=== PATIENT | female | born 1970 | race Caucasian/White ===

== ENCOUNTER 2022-07-13 07:09 | Emergency (ER) | payer OTHER, SELFPAY ==
[2022-07-13] VITALS (25 sets, daily range): BP systolic 129–152; BP diastolic 88–110; PULSE 104; RESP 12; TEMP 37.1; O2SAT 95–98
[2022-07-13 07:29] LABS: Glucose Point of Care 475 mg/dl (65-105)
--- NOTE | 2022-07-13 07:38 | ED.GENADULT ---
HPI - General Adult General Chief complaint: Recheck/Abnormal Lab/Rx Stated complaint: BS High x 2-3 days Time Seen by Provider: 07/13/22 07:12 History of Present Illness HPI narrative: 52-year-old female with history of type 2 diabetes for which she is noncompliant for presents to the emergency department complaining of hyperglycemia and diaphoresis. Patient states that last night her blood sugar was running over 500. Patient states she was at work this morning and had some diaphoresis and did not feel well and states that her blood sugar was 450. Patient had been prescribed metformin a few years ago but states that it upset her stomach so she stopped taking it. Patient states over the past 2 years she checks her blood sugars intermittently but does not take any medications for it. She states her blood sugar has always been over 300. Patient does describe symptoms of diabetic neuropathy. Patient describes intermittent chest pain but denies any chest pain today or this morning Related Data Allergies Allergy/AdvReac Type Severity Reaction Status Date / Time No Known Allergies Allergy Unknown Verified 07/13/22 09:55 Review of Systems Review of Systems: CONSTITUTIONAL: Generalized weakness diaphoresis EYES: Denies visual changes, redness, or discharge. ENT: Denies rhinorrhea, congestion, sore throat, or otalgia. CARDIOVASCULAR: Denies chest pain, palpitations, or edema. RESPIRATORY: Denies cough or dyspnea. GASTROINTESTINAL: Denies abdominal pain, nausea, vomiting, or diarrhea. GENITOURINARY: Denies dysuria or hematuria. SKIN: Denies rash or itching. MUSCULOSKELETAL: Denies back pain, joint pain, or myalgia. NEUROLOGIC: Denies headache, numbness, or weakness. [facility] Family History Family History (Updated 06/03/16 @ 23:19 by DOCTOR UNKNOWN) Mother Family history of chronic obstructive pulmonary disease Father Family history of diabetes mellitus in first degree relative Family history of heart disease in male family member before age 55 Grandparent Family history of lung cancer Social History Social History Smoking status: Never smoker Alcohol intake: current Exam Narrative: APPEARANCE: Well appearing, no pain, no distress, well-nourished. HEAD: normocephalic, atraumatic. EYES: PERRLA/EOMI, conjunctivae clear. NOSE: Normal no drainage NECK: Supple. No adenopathy, no masses. RESPIRATORY: Airway patent, respirations nonlabored. Clear to auscultation bilaterally, no rales, rhonchi, wheezing. CARDIOVASCULAR: Regular rate and rhythm without murmurs rubs or gallops. ABDOMINAL: Soft, nontender, nondistended, normal bowel sounds MUSCULOSKELETAL: Moves all extremities. Strength/ROM intact, No edema, No calf tenderness. NEURO: Alert. Cranial nerves II through XII intact. Grossly intact SKIN: Warm, dry. Normal Color Course Course Emergency Course: Case was discussed with the nurse practitioner for Dr. Montoya. Patient does feel improved with treatment. Patient was updated [facility] and the importance of having close follow-up with Dr. Montoya's office was stressed. Vital Signs Vital signs: Vital Signs Temperature 98.8 F 07/13/22 07:19 Pulse Rate 104 H 07/13/22 07:19 Respiratory Rate 12 07/13/22 07:19 Blood Pressure 152/103 H 07/13/22 07:19 Pulse Oximetry 97 07/13/22 07:19 Temperature 98.8 F 07/13/22 07:19 Pulse Rate 104 H 07/13/22 07:19 Respiratory Rate 12 07/13/22 07:19 Blood Pressure 130/88 07/13/22 11:31 Pulse Oximetry 97 07/13/22 11:31 Medical Decision Making Vital Signs Vital Signs: Vital Signs Temperature 98.8 F 07/13/22 07:19 Pulse Rate 104 H 07/13/22 07:19 Respiratory Rate 12 07/13/22 07:19 Blood Pressure 152/103 H 07/13/22 07:19 Pulse Oximetry 97 07/13/22 07:19 Temperature 98.8 F 07/13/22 07:19 Pulse Rate 104 H 07/13/22 07:19 Respiratory Rate 12 07/13/22 07:19 Blood Pressure
[2022-07-13 07:54] LABS: Appearance Urine Clear (Clear); Bilirubin Urine Negative (Negative); Blood Urine 1+ (Negative); Color Urine Yellow (Yellow); Glucose Urine UA 3+ mg/dL (Negative); Ketones Urine 2+ mg/dL (Negative); Leukocyte Esterase Ur Negative LEU/UL (Negative); Nitrate Urine Negative (Negative); Protein Urine 2+ mg/dL (Negative); Urobilinogen Urine 0.2 mg/dL (<2.0); pH Urine 5.5 (5.0-9.0)
[2022-07-13 07:58] LABS: Basophils Percent Auto 0.4 % (0.2-1.2); Eosinophils Absolute Auto 0.2 K/mm3 (0-0.3); Eosinophils Percent Auto 1.8 % (0-4.4); Hematocrit 45.2 % (37.0-47.0); Hemoglobin 15.7 g/dL (12.0-15.0); Immature Granulocyte Absolute 0.05 K/mm3 (0.00-0.031); Immature Granulocyte Percent A 0.5 % (0-0.5); Lymphocytes Absolute Auto 1.39 K/mm3 (0.9-3.2); Lymphocytes Percent Auto 12.7 % (18.3-44.2); Mean Corpuscular HGB Conc 34.7 g/dl (32-36); Mean Corpuscular Hemoglobin 30.4 pg (26-34); Mean Corpuscular Volume 87.4 fl (80-100); Mean Platelet Volume 11.7 fl (7.4-10.4); Monocytes Absolute Auto 0.7 K/mm3 (0.1-0.6); Monocytes Percent Auto 6.8 % (2.6-8.5); Neutrophils Absolute Auto 8.5 K/mm3 (1.3-6.7); Neutrophils Percent Auto 77.8 % (45.5-73.1); Platelet Count Result 243 k/mm3 (150-375); Red Blood Count 5.17 M/mm3 (4.2-5.4); Red Cell Distribution Width 12.9 % (11.5-14.5)
[2022-07-13 08:04] LABS: Lactic Acid Reflex 1.1 mmol/L (0.7-2.0)
[2022-07-13 08:06] LABS: Alanine Aminotransferase 35 U/L (6-35); Albumin Level 4.3 g/dL (3.5-5.1); Alkaline Phosphatase 239 U/L (38-126); Anion Gap 14 mmol/L (8-16); Aspartate Amino Transferase 33 U/L (14-36); Bilirubin,Total 0.9 mg/dL (0.2-1.3); Blood Urea Nitrogen 25 mg/dL (7-17); Carbon Dioxide 18 mmol/L (22-30); Chloride 100 mmol/L (98-107); Estimated CRCL calculation 131 ml/min; Estimated Glomerular Filt Rate > 60; Glucose 441 mg/dL (65-110); Magnesium 1.8 mg/dL (1.6-2.3); Phosphorus 4.1 mg/dL (2.5-4.5); Potassium 4.2 mmol/L (3.4-5.0); Sodium 132 mmol/L (137-145)
[2022-07-13 08:10] LABS: Beta-Hydroxybutyrate/Acetoacetate 1.48 mmol/L (0.02-0.27)
[2022-07-13 08:15] LABS: Add Urine Microscopic? YES; Squamous Epithelial Cell Urine Many /hpf (Few); WBC Urine 0-3 /hpf
[2022-07-13 08:28] LABS: Hemoglobin A1C > 14.0 % (<5.7)
[2022-07-13] MEDS: SODIUM CHLORIDE 0.9% IV 1,000 ML 999 ML IV CONT ×2 (08:32→09:22)
[2022-07-13 11:38] LABS: Glucose Point of Care 277 mg/dl (65-105)
== END 2022-07-13 11:58 | disposition home or self-care (01) ==
PROVIDERS: Emergency Provider Emergency Medicine
DX: E11.65 Type 2 diabetes mellitus with hyperglycemia (principal)
CPT/HCPCS: 36415; 80053; 81001; 82010; 82948; 83036; 83605; 83735; 84100; 85025; 96360; 96361; 99283; J7030

== ENCOUNTER 2022-08-18 15:30 | Outpatient (RCR) | payer OTHER, SELFPAY ==
[2022-07-21 09:31] VITALS: BMI 34.0
[2022-07-21 10:48] VITALS: BMI 34.0
== END 2022-10-10 11:16 | disposition home or self-care (01) ==
LOC: ANHDMC 15:30
PROVIDERS: PCP Internal Medicine; Visit Provider Nurse Practitioner
DX: E11.9 Type 2 diabetes mellitus without complications (principal); Z71.3 Dietary counseling and surveillance; Z71.89 Other specified counseling
CPT/HCPCS: 97802; G0108

== ENCOUNTER 2022-09-16 08:23 | Outpatient (CLI) | payer OTHER, SELFPAY ==
[2022-09-16 18:29] LABS: Anion Gap 13 mmol/L (8-16); Blood Urea Nitrogen 16 mg/dL (7-17); Calcium 9.2 mg/dL (8.4-10.2); Carbon Dioxide 24 mmol/L (22-30); Chloride 108 mmol/L (98-107); Cholesterol 195 mg/dL (0-200); Estimated Glomerular Filt Rate > 60; Glucose 104 mg/dL (65-110); HDL Direct 38 mg/dL; Potassium 3.7 mmol/L (3.4-5.0); Sodium 145 mmol/L (137-145); Triglycerides 101 mg/dL (<150)
[2022-09-16 18:38] LABS: Hemoglobin A1C 7.7 % (<5.7)
[2022-09-16 18:39] LABS: LDL Cholesterol Direct 93 mg/dL
[2022-09-16 19:20] LABS: Creatinine Urine 118.2 mg/dL
[2022-09-16 20:11] LABS: MALB Creatinine Ratio 949.2 mg/g (0-30); Microalbumin Urine Random 1121.9 mg/L (0-16.7)
== END 2022-09-16 08:24 | disposition home or self-care (01) ==
LOC: ANHGOSHLAB 08:26
PROVIDERS: PCP Internal Medicine; Visit Provider Nurse Practitioner
DX: E11.9 Type 2 diabetes mellitus without complications (principal)
CPT/HCPCS: 36415; 80048; 80061; 82043; 83036

== ENCOUNTER → 2022-10-03 12:18 | Outpatient (CLI) | payer OTHER, SELFPAY ==
--- NOTE | ~2022-10-03 | MM_ITS ---
EXAMINATION: MM screening [facility] BI w ole HISTORY: Screening mammogram TECHNIQUE: Craniocaudal and mediolateral oblique 3-D tomosynthesis images were obtained and synthetic 2-D images were generated. CAD analysis was submitted and interpreted. COMPARISON: 02/10/2016, 02/05/2013 BREAST PARENCHYMAL COMPOSITION: There are scattered areas of fibroglandular density. FINDINGS: No suspicious mass, calcification, or architectural distortion are identified in either jackie ast to suggest malignancy. There has been no suspicious interval change. IMPRESSION: 1. No mammographic evidence of malignancy. 2. Recommend routine screening mammography in one year. BI-RADS Category 1: Negative Reviewed, dictated and finalized at location A. [employer]
== END ==
PROVIDERS: PCP Internal Medicine; Visit Provider Nurse Practitioner
DX: Z12.31 Encounter for screening mammogram for malignant neoplasm of breast (principal)
CPT/HCPCS: 77063; 77067

== ENCOUNTER 2022-11-09 01:24 | Day surgery (SDC) | payer OTHER, SELFPAY ==
[2022-10-24 13:56] VITALS: BMI 33.7
--- NOTE | 2022-11-08 13:04 | PM.HPGS ---
History of Present Illness History of Present Illness Consent: Risks, benefits, and alternatives have been discussed and questions answered. Patient agrees to proceed with procedure. Chief complaint: neoplasm screening Narrative: Ana Lilia Khan is a 52 year old female Referred for colon cancer screening. Review of Systems Review of Systems: All systems reviewed & are unremarkable except as noted in HPI and below PMFSH Past Medical History Medical History Allergies delivery delivered Diabetes Peripheral neuropathy Surgical History Surgical History H/O dilation and curettage Hx of cholecystectomy Family History Family History Mother Family history of chronic obstructive pulmonary disease Father Family history of diabetes mellitus in first degree relative Family history of heart disease in male family member before age 55 Grandparent Family history of lung cancer Social History Social History Smoking status: Never smoker Alcohol intake: current Substance use: never Lack of Transportation: No Lack of Food: Never True Current Housing: I Have Housing Concerned About Future Housing: No Difficulty Paying Gas/Electric Bills: No Difficulty Paying for Meds: No Currently Unemployed: No Education: High School Diploma/GED Difficulty w/ Childcare or Family Care: No Living arrangements: with family 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 Gender identity (if verbalized by the patient): Female Spiritual care concerns: No Agree to blood products: Yes Meds Home Medications and Allergies Home Medications Medication Instructions Recorded Confirmed Type blood-glucose meter #1 ea 07/15/22 09/26/22 Rx lancets 30 gauge #100 ea 07/15/22 09/26/22 Rx loratadine 10 mg tablet (Claritin) 10 mg PO DAILY 07/15/22 10/24/22 History omeprazole 10 mg capsule,delayed 10 mg PO DAILY 07/15/22 10/24/22 History release blood sugar diagnostic (FreeStyle #50 strips 08/04/22 09/26/22 Rx Lite Strips) insulin syringe-needle U-100 1 mL #100 ea 09/14/22 09/26/22 Rx 31 gauge x 5/16 (BD Insulin Syringe Ultra-Fine) atorvastatin 10 mg tablet 10 mg PO QHS #90 tabs 09/26/22 10/24/22 Rx gabapentin 300 mg capsule 300 mg PO QHS #30 caps 09/26/22 10/24/22 Rx insulin glargine 100 unit/mL 20 unit (0.2 mL) subcut QPM 90 09/26/22 10/24/22 Rx subcutaneous solution (Lantus days #18 mL U-100 Insulin) inulin 2 gram chewable tablet g PO 09/26/22 09/26/22 History (Fiber Gummies) dulaglutide 0.75 mg/0.5 mL See Rx Instructions .Route 10/19/22 10/24/22 Rx subcutaneous pen injector .COMPLEX #6 mL (Trulicity) lisinopril 5 mg tablet See Rx Instructions .Route 11/08/22 Rx .COMPLEX #90 tabs Allergies Allergy/AdvReac Type Severity Reaction Status Date / Time No Known Allergies Allergy Unknown Verified 10/24/22 13:55 Exam Const: General: alert Orientation/consciousness: patient oriented x3 Resp: Auscultation: clear to auscultation bilaterally Cardio: Rhythm: regular rhythm GI: GI Palp: Yes Soft to palpation and No Tenderness to palpation present (GI) Neuro: General: patient oriented x3 Assessment and Plan Assessment and plan (1) Screening for colon cancer: Code(s): Z12.11 - Encounter for screening for malignant neoplasm of colon Status: Acute Assessment and Plan: Colonoscopy with possible biopsy or polypectomy or cautery or injection of substances.
[2022-11-09 08:25] VITALS: BP 112/83; PULSE 118; RESP 20; TEMP 36.1; O2SAT 99; BMI 31.1
[2022-11-09 08:39] LABS: Glucose Point of Care 150 mg/dl (65-105)
[2022-11-09] MEDS: LACTATED RINGERS 1,000 ML 150 ML IV CONT (08:55)
--- NOTE | 2022-11-09 09:21 | WPDANESEPPF ---
Anes - Initial Pre Proc Eval Procedure: Operation Date: 11/09/22 10:00 Proposed Procedures p Screening Colonoscopy - Gerson Mckeon MD Date/Time: 11/09/22 09:21 Surgeon: Gerson Mckeon MD Pre Op Diagnosis: neoplasm screening Patient Data Age: 52 Gender: F Height: 1.75 m Weight: 95.7 kg Last Vital Signs Temp 97 F L 11/09/22 08:25 Pulse 118 H 11/09/22 08:25 Resp 20 11/09/22 08:25 BP 112/83 11/09/22 08:25 Pulse Ox 99 11/09/22 08:25 O2 Del Method Room Air 11/09/22 08:25 Allergies Allergy/AdvReac Type Severity Reaction Status Date / Time No Known Allergies Allergy Unknown Verified 10/24/22 13:55 Home Medications Medication Instructions Recorded Confirmed Type blood-glucose meter #1 ea 07/15/22 09/26/22 Rx lancets 30 gauge #100 ea 07/15/22 09/26/22 Rx loratadine 10 mg tablet (Claritin) 10 mg PO DAILY 07/15/22 10/24/22 History omeprazole 10 mg capsule,delayed 10 mg PO DAILY 07/15/22 10/24/22 History release blood sugar diagnostic (FreeStyle #50 strips 08/04/22 09/26/22 Rx Lite Strips) insulin syringe-needle U-100 1 mL #100 ea 09/14/22 09/26/22 Rx 31 gauge x 5/16 (BD Insulin Syringe Ultra-Fine) atorvastatin 10 mg tablet 10 mg PO QHS #90 tabs 09/26/22 10/24/22 Rx gabapentin 300 mg capsule 300 mg PO QHS #30 caps 09/26/22 10/24/22 Rx insulin glargine 100 unit/mL 20 unit (0.2 mL) subcut QPM 90 09/26/22 10/24/22 Rx subcutaneous solution (Lantus days #18 mL U-100 Insulin) inulin 2 gram chewable tablet g PO 09/26/22 09/26/22 History (Fiber Gummies) dulaglutide 0.75 mg/0.5 mL See Rx Instructions .Route 10/19/22 10/24/22 Rx subcutaneous pen injector .COMPLEX #6 mL (Trulicity) lisinopril 5 mg tablet See Rx Instructions .Route 11/08/22 Rx .COMPLEX #90 tabs Laboratory Tests 11/09/22 08:36 POC Capillary Glucose 150 mg/dl H mg/dl (65-105) Patient hx anesthesia problems: none Family hx anesthesia problems: none Results Review: All pre-operative results and documents have been reviewed as part of the pre-operative evaluation. [facility] Past Medical History Medical History (Updated 09/26/22 @ 15:11 by Kati Corona NP) Allergies delivery delivered Diabetes Peripheral neuropathy Surgical History Surgical History H/O dilation and curettage Hx of cholecystectomy Family History Family History Mother Family history of chronic obstructive pulmonary disease Father Family history of diabetes mellitus in first degree relative Family history of heart disease in male family member before age 55 Grandparent Family history of lung cancer Social History Social History (Updated 09/26/22 @ 14:34 by Jodi Sahu CMA) Smoking status: Never smoker Alcohol intake: current Substance use: never Lack of Transportation: No Lack of Food: Never True Current Housing: I Have Housing Concerned About Future Housing: No Difficulty Paying Gas/Electric Bills: No Difficulty Paying for Meds: No Currently Unemployed: No Education: High School Diploma/GED Difficulty w/ Childcare or Family Care: No Living arrangements: with family 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
[2022-11-09 10:28] VITALS: BP 140/89; PULSE 100; RESP 21; O2SAT 98
[2022-11-09 10:38] VITALS: BP 143/90; PULSE 89; RESP 19; O2SAT 99
[2022-11-09 10:39] LABS: Glucose Point of Care 111 mg/dl (65-105)
[2022-11-09 10:48] VITALS: BP 135/95; PULSE 91; RESP 26; O2SAT 99
== END 2022-11-09 10:52 | disposition home or self-care (01) ==
PROVIDERS: PCP Internal Medicine; Visit Provider Internal Medicine Gastroenterology
PROC: 0DJD8ZZ Inspection of Lower Intestinal Tract, Via Natural or Artificial Opening Endoscopic (ICD-10-PCS; CPT 45378; principal; 2022-11-09 10:00)
DX: Z12.11 Encounter for screening for malignant neoplasm of colon (principal); E11.42 Type 2 diabetes mellitus with diabetic polyneuropathy; Z79.4 Long term (current) use of insulin; Z79.899 Other long term (current) drug therapy; E66.9 Obesity, unspecified; Z68.31 Body mass index [BMI] 31.0-31.9, adult
CPT/HCPCS: 45378; 82948; J2704; J7120

== ENCOUNTER 2022-12-16 08:24 | Outpatient (CLI) | payer OTHER, SELFPAY ==
[2022-12-16 19:54] LABS: Cholesterol 172 mg/dL (0-200); HDL Direct 52 mg/dL; Triglycerides 77 mg/dL (<150)
[2022-12-16 20:06] LABS: Hemoglobin A1C 5.8 % (<5.7); LDL Cholesterol Direct 66 mg/dL
== END 2022-12-16 08:25 | disposition home or self-care (01) ==
LOC: ANHGOSHLAB 08:26
PROVIDERS: PCP Internal Medicine; Visit Provider Nurse Practitioner
DX: E78.5 Hyperlipidemia, unspecified (principal); E11.9 Type 2 diabetes mellitus without complications; Z79.4 Long term (current) use of insulin
CPT/HCPCS: 36415; 80061; 83036

== ENCOUNTER 2023-04-14 08:45 | Outpatient (CLI) | payer OTHER, SELFPAY ==
[2023-04-14 12:11] LABS: Basophils Percent Auto 0.5 % (0.2-1.2); Eosinophils Absolute Auto 0.2 K/mm3 (0-0.3); Hematocrit 40.9 % (37.0-47.0); Hemoglobin 13.8 g/dL (12.0-15.0); Immature Granulocyte Absolute 0.02 K/mm3 (0.00-0.031); Immature Granulocyte Percent A 0.3 % (0-0.5); Lymphocytes Absolute Auto 2.18 K/mm3 (0.9-3.2); Mean Corpuscular HGB Conc 33.7 g/dl (32-36); Mean Corpuscular Hemoglobin 31.4 pg (26-34); Mean Platelet Volume 11.8 fl (7.4-10.4); Monocytes Absolute Auto 0.7 K/mm3 (0.1-0.6); Monocytes Percent Auto 8.3 % (2.6-8.5); Neutrophils Absolute Auto 4.7 K/mm3 (1.3-6.7); Neutrophils Percent Auto 59.9 % (45.5-73.1); Platelet Count Result 234 k/mm3 (150-375); Red Cell Distribution Width 13.1 % (11.5-14.5); White Blood Count 7.8 K/mm3 (4.5-10.0)
[2023-04-14 12:34] LABS: Alanine Aminotransferase 84 U/L (6-35); Alkaline Phosphatase 234 U/L (38-126); Anion Gap 6 mmol/L (8-16); Aspartate Amino Transferase 71 U/L (14-36); Bilirubin,Total 0.8 mg/dL (0.2-1.3); Blood Urea Nitrogen 19 mg/dL (7-17); Calcium 9.1 mg/dL (8.4-10.2); Carbon Dioxide 28 mmol/L (22-30); Chloride 108 mmol/L (98-107); Estimated Glomerular Filt Rate > 60; Glucose 98 mg/dL (65-110); Potassium 3.9 mmol/L (3.4-5.0); Sodium 142 mmol/L (137-145)
[2023-04-14 13:32] LABS: Hemoglobin A1C 6.2 % (<5.7)
== END 2023-04-14 08:46 | disposition home or self-care (01) ==
LOC: ANHGOSHLAB 08:45
PROVIDERS: PCP Internal Medicine; Visit Provider Nurse Practitioner
DX: E11.9 Type 2 diabetes mellitus without complications (principal); Z79.4 Long term (current) use of insulin
CPT/HCPCS: 36415; 80053; 83036; 85025

== ENCOUNTER 2023-08-28 11:26 | Outpatient (CLI) | payer OTHER, SELFPAY ==
[2023-08-28 19:08] LABS: Hepatitis B Surface Antigen Negative (Negative)
[2023-08-28 19:11] LABS: Iron 71 ug/dL (37-170)
[2023-08-28 19:20] LABS: HIV 1/2 Ab P24 Ag Result Negative (Negative); Percent Iron Saturation 22 % (20-50)
[2023-08-28 19:25] LABS: Hepatitis C Virus Antibody Negative (Negative)
[2023-08-28 19:26] LABS: Alanine Aminotransferase 53 U/L (6-35); Albumin Level 4.1 g/dL (3.5-5.1); Alkaline Phosphatase 250 U/L (38-126); Anion Gap 9 mmol/L (8-16); Aspartate Amino Transferase 40 U/L (14-36); Bilirubin,Total 0.6 mg/dL (0.2-1.3); Blood Urea Nitrogen 21 mg/dL (7-17); Calcium 9.4 mg/dL (8.4-10.2); Carbon Dioxide 26 mmol/L (22-30); Chloride 105 mmol/L (98-107); Estimated Glomerular Filt Rate > 60; Glucose 140 mg/dL (65-110); Sodium 140 mmol/L (137-145)
[2023-08-28 23:53] LABS: Hemoglobin A1C 6.4 % (<5.7)
== END 2023-08-28 11:27 | disposition home or self-care (01) ==
LOC: ANHGOSHLAB 11:28
PROVIDERS: PCP Internal Medicine; Visit Provider Nurse Practitioner
DX: E11.9 Type 2 diabetes mellitus without complications (principal); R74.01 Elevation of levels of liver transaminase levels
CPT/HCPCS: 36415; 80053; 83036; 83540; 83550; 84443; 86703; 86803; 87340; G0432

== ENCOUNTER 2023-12-25 09:00 | Outpatient (CLI) | payer OTHER, SELFPAY ==
[2023-12-25 13:03] LABS: Basophils Percent Auto 0.5 % (0.2-1.2); Eosinophils Absolute Auto 0.3 K/mm3 (0-0.3); Eosinophils Percent Auto 3.1 % (0-4.4); Hemoglobin 15.9 g/dL (12.0-15.0); Immature Granulocyte Absolute 0.02 K/mm3 (0.00-0.031); Immature Granulocyte Percent A 0.2 % (0-0.5); Lymphocytes Absolute Auto 2.19 K/mm3 (0.9-3.2); Lymphocytes Percent Auto 26.8 % (18.3-44.2); Mean Corpuscular HGB Conc 33.1 g/dl (32-36); Mean Corpuscular Hemoglobin 30.5 pg (26-34); Mean Corpuscular Volume 92.1 fl (80-100); Mean Platelet Volume 12.1 fl (7.4-10.4); Monocytes Absolute Auto 0.7 K/mm3 (0.1-0.6); Monocytes Percent Auto 8.2 % (2.6-8.5); Neutrophils Percent Auto 61.2 % (45.5-73.1); Platelet Count Result 265 k/mm3 (150-375); Red Blood Count 5.21 M/mm3 (4.2-5.4); Red Cell Distribution Width 13.4 % (11.5-14.5); White Blood Count 8.2 K/mm3 (4.5-10.0)
[2023-12-25 13:37] LABS: Alanine Aminotransferase 43 U/L (6-35); Albumin Level 4.4 g/dL (3.5-5.1); Alkaline Phosphatase 170 U/L (38-126); Anion Gap 9 mmol/L (8-16); Aspartate Amino Transferase 65 U/L (14-36); Bilirubin,Total 0.8 mg/dL (0.2-1.3); Blood Urea Nitrogen 12 mg/dL (7-17); Calcium 9.9 mg/dL (8.4-10.2); Carbon Dioxide 27 mmol/L (22-30); Chloride 105 mmol/L (98-107); Cholesterol 199 mg/dL (0-200); Estimated Glomerular Filt Rate > 60; Glucose 120 mg/dL (65-110); HDL Direct 45 mg/dL; Potassium 3.8 mmol/L (3.4-5.0); Sodium 141 mmol/L (137-145); Triglycerides 129 mg/dL (<150)
[2023-12-25 13:48] LABS: LDL Cholesterol Direct 98 mg/dL
[2023-12-25 16:10] LABS: Vitamin D 25 Hydroxy < 12.8 ng/mL
[2023-12-26 15:42] LABS: Hemoglobin A1C 5.9 % (<5.7)
[2023-12-28 14:30] LABS: GGT 69 U/L (3-70)
== END 2023-12-25 09:01 | disposition home or self-care (01) ==
LOC: ANHGOSHLAB 09:03
PROVIDERS: PCP Internal Medicine; Visit Provider Nurse Practitioner
DX: E11.9 Type 2 diabetes mellitus without complications (principal); E55.9 Vitamin D deficiency, unspecified; R74.8 Abnormal levels of other serum enzymes; Z79.4 Long term (current) use of insulin; R74.01 Elevation of levels of liver transaminase levels
CPT/HCPCS: 36415; 80053; 80061; 82306; 82977; 83036; 84443; 85025

== ENCOUNTER 2024-08-09 11:06 | Outpatient (CLI) | payer OTHER, SELFPAY ==
--- NOTE | ~2024-08-09 | MM_ITS ---
EXAMINATION: MM screening [facility] BI w ole HISTORY: Screening TECHNIQUE: Craniocaudal and mediolateral oblique 3-D tomosynthesis images were obtained and synthetic 2-D images were generated. CAD analysis was submitted and interpreted. COMPARISON: Comparison to multiple prior studies sequentially, with oldest reviewed study dated 04/2016. BREAST PARENCHYMAL COMPOSITION: Not dense: There are scattered areas of fibroglandular density. FINDINGS: There is no evidence of suspicious mass, calcification, or architectural distortion to sugg est malignancy in either breast. There has been no suspicious interval change. IMPRESSION: 1. No mammographic evidence of malignancy. 2. Recommend routine screening mammography in one year. BI-RADS Category 1: Negative Reviewed, dictated and finalized at location B.
== END 2024-08-09 11:07 | disposition home or self-care (01) ==
LOC: MICIMG 11:07
PROVIDERS: PCP Internal Medicine; Visit Provider Nurse Practitioner
DX: Z12.31 Encounter for screening mammogram for malignant neoplasm of breast (principal)
CPT/HCPCS: 77063; 77067